=== PATIENT | male | born 1930 | race Caucasian/White ===

== ENCOUNTER 2020-05-14 19:53 | Inpatient (IN) | payer OTHER ==
[~2020-05-14] VITALS: Ht 177.8 cm; Wt 90.3 kg
--- NOTE | ~2020-05-14 | CON ---
[address] [address] CONSULTATION Name: PRASHANTH BAZAN Room: [address] ADM IN M.R.#: [id number] Admission: 05/14/20 Attend Phys: Janna Bagley Discharge: Date of : [birth year] Report #: [id number] THIS REPORT FOR: //name// cc: SOTERO Escobedo No family physician/PCP [facility] - No family physician/PCP ~ THIS REPORT FOR: //name// CC: [facility] physician/PCP Dawson Sotelo DICTATED BY: Dione Linder [facility] DATE OF SERVICE: 05/16/2020 PRIMARY CARE PHYSICIAN: Unknown who his primary care physician is except someone is at [facility]. Please note at the time of this dictation, the patient was seen and physically examined by myself. REASON FOR CONSULTATION: Cholelithiasis. HISTORY OF PRESENT ILLNESS: This is an 89-year-old male who presented to the Emergency Room when his family found him on the floor and he was complaining of some chest pain. He was also complaining of being short of breath. He denied any nausea or vomiting or fever and chills at that time. It was noted Cardiology was seen and was noted that he had an MD and is placed on heparin at this time. He does have a history of a CVA in the past as well. In talking with the daughter at the bedside because the patient was incoherent and sleeping at this time, states that he has been complaining off and on with eating some right upper quadrant pain, but it has not been consistent. She is unclear if he has ever had any upper or lower scopes done before and again the patient is unable to give me a history at this time. ALLERGIES: No known drug allergies. MEDICATIONS FROM HOME: Clonazepam, mirtazapine, Protonix, metformin, Plavix, Norvasc, Lipitor, and Levemir. PAST MEDICAL HISTORY: Diabetes, hypertension, prostate cancer, and right knee arthroscopic surgery. PAST SURGICAL HISTORY: Appendectomy. FAMILY HISTORY: [place] [address] CONSULTATION Name: ALEJANDRINAPRASHANTH Room: [address] IN .R.#: [id number] Admission: 05/14/20 Attend Phys: Janna Bagley Discharge: Date of : [birth year] Report #: [id number] SOCIAL HISTORY: Denies any alcohol, tobacco or illegal drug use. The patient lives alone in his home, uses a walker. His daughter lives next door to him and checks on him on a regular basis. REVIEW OF SYSTEMS: The 12-point review of systems is essentially negative except what is mentioned in the HPI. PHYSICAL EXAMINATION: VITAL SIGNS: Temperature 36.5, pulse 73, respirations 18, and blood pressure 126/96. HEART: Regular rate and rhythm. LUNGS: Diminished with a few little expiratory wheezes. ABDOMEN: Soft. Positive bowel sounds in all 4 quadrants with some right tenderness noted with grimacing on the patient's face during palpation. LABORATORY DATA: Hemoglobin 14.7, white count 10.9, and platelets 157. PTT is 85.1. GFR is only 24. Total bilirubin is 1.3, alkaline phosphatase 80, ALT 19, and AST is 43. CT of the abdomen and pelvis showed layering gallstones, otherwise negative. Ultrasound confirming with no other acute abnormality noted. IMPRESSION: 1. Elevated troponin. 2. Right upper quadrant pain. 3. Cholelithiasis. 4. Anticoagulant therapy, heparin, cerebrovascular accident. PLAN: 1. No intervention per GI at this time. LFTs normal. Consider surgical to remove the gallbladder once he is recovered from his myocardial infarction. 2. Low-fat, low-cholesterol diet. 3. Further recommendations to be made once Dr. Michaud sees the patient later today. Thank you for allowing us to participate in this patient's care. Please do not hesitate to call with any questions in regard to this consult. By: [id number] Michaud MD /renata
[~2020-05-14 19:53] MED LIST: LEVEMIR SUBQ; LEVEMIR100 UNIT/1 SUBQ; LIPITOR PO; METFORMIN HCL500 MG PO; NORVASC5 MG PO; PLAVIX 75 MG TA75 M1 PO
[2020-05-14 20:02] VITALS: BP 151/91
[2020-05-14] MEDS ORDERED: CLONAZEPAM 0.50.5 M1 PO (20:08)
[2020-05-14] MEDS ORDERED: MIRTAZAPINE15 M2 PO (20:08)
[2020-05-14] MEDS ORDERED: PROTONIX40 M2 PO (20:09)
[2020-05-14] MEDS ORDERED: MUPIROCIN22 GM (20:09)
[2020-05-14 20:23] LABS: HEMATOCRIT 47.9 % (42.0-52.0); HEMOGLOBIN 15.9 gm/dL (14.0-18.0); MCH 30.3 pg (26.0-34.0); MCHC 33.3 g/dL (28.0-37.0); MCV 91.1 fL (80.0-100.0); NUCLEATED RBCS 0 /100WBC; PLATELET COUNT* 194 thou/uL (150-400); RBC 5.26 mil/uL (4.50-6.00); RDW-CV 13.9 % (10.5-14.5); WBC 13.4 thou/uL (4.0-11.0)
[2020-05-14 20:36] LABS: CALCIUM 9.1 mg/dL (8.5-10.1); CREATININE 2.9 mg/dL (0.6-1.3); POTASSIUM 5.2 mmol/L (3.5-5.1)
[2020-05-14 20:44] LABS: ALBUMIN 3.2 g/dL (3.4-5.0); MAGNESIUM 2.1 mg/dL (1.8-2.4); TOTAL BILIRUBIN 0.9 mg/dL (<0.1-1.0); TOTAL PROTEIN 7.3 g/dL (6.4-8.2)
[2020-05-14 20:45] LABS: PROTIME 10.4 Seconds (9.20-11.50)
[2020-05-14 20:48] LABS: ABSOLUTE LYMPHOCYTES 0.4 thou/uL (0.8-5.3); ABSOLUTE MONOCYTES 0.9 thou/uL (0.0-1.2); ABSOLUTE NEUTROPHILS 12.1 thou/uL (1.6-8.1); PLATELET ESTIMATE ADEQUATE
[2020-05-15] VITALS (25 sets, daily range): BP systolic 99–165; BP diastolic 63–109
[2020-05-15 03:48] LABS: HEMATOCRIT 44.7 % (42.0-52.0); MCH 30.3 pg (26.0-34.0); MCHC 33.6 g/dL (28.0-37.0); MCV 90.3 fL (80.0-100.0); MPV 8.4 fl. (7.2-11.1); RBC 4.95 mil/uL (4.50-6.00); RDW-CV 13.6 % (10.5-14.5)
[2020-05-15 04:03] LABS: CALCIUM 8.5 mg/dL (8.5-10.1); CREATININE 2.6 mg/dL (0.6-1.3)
[2020-05-15 04:05] LABS: POTASSIUM 3.6 mmol/L (3.5-5.1)
[2020-05-15 04:07] LABS: ALBUMIN 2.9 g/dL (3.4-5.0); MAGNESIUM 2.1 mg/dL (1.8-2.4); TOTAL PROTEIN 6.8 g/dL (6.4-8.2)
--- NOTE | 2020-05-15 04:20 | NUR ---
ASSUMED CARE AT 0010H, ON RA AND TOLERATED. ORIENTED WITH CUNFUSSION AT TIMES. PT ALWAYS MOVING ON BED. ON INSULIN DRIP AND TITRATED. HEPARIN DRIP STARTED. ORIENT PT ALL THE TIME. KEPT SAFE. PT BECAME HYPOGLYCEMIC BEFORE 0300H AND UNRESPONSSIVE AND HR AT 174BPM, D%50 50ML GIVEN AND INSULIN DRIP STOP. LATEST BS 139. PT AWAKE, THRASHING ON BED, PRN PAIN MEDS GIVEN. PT WITH CONFUSSION AND STILL MOVING AND TRYING REMOVE PB CUFF. CONTINUE MONITORING AND TOWARD GOALS.
--- NOTE | 2020-05-15 05:10 | NUR ---
PT KEEPS ON TELLING THAT IS HIS TIME TO GO. PAST AWAY LAST MONTH ACCORDING TO HIM.
--- NOTE | 2020-05-15 10:27 | EKG ---
[place] [address] ELECTROCARDIOGRAM REPORT Name: MILTON BAZANARD Room: [address] ADM IN M.R.#: [id number] Admission: 05/14/20 Attend Phys: Dawson Sotelo Discharge: Date of : [birth year] Date of Service: 05/14/201958 Report #: [id number] THIS REPORT FOR: //name// 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 : 1930 Requested By: Dawson Sotelo Order Number: [id number] Kathy MD: Gagan Roberts Measurements Intervals [place] Rate: 116 P: 21 CO: 160 QRS: 113 QRSD: 88 T: -5 QT: 322 QTc: 448 Interpretive Statements Sinus tachycardia Borderline T abnormalities, inferior leads Baseline wander in lead(s) V5 No previous ECG available for comparison Electronically Signed On 05-15-2020 10:27:13 CDT by Gagan Roberts [email or web address] <ELECTRONICALLY SIGNED> By: Gagan Roberts MD, [facility] 05/15/20 1027 58 58 Gagan Roberts MD, [facility] /EPI
--- NOTE | 2020-05-15 10:29 | EKG ---
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 05/15/20 1029 Gagan Roberts MD, FAC /EPI
[2020-05-15 12:39] LABS: URINE BILIRUBIN NEGATIVE (Negative); URINE BLOOD TRACE (Negative); URINE CLARITY CLEAR; URINE COLOR YELLOW; URINE GLUCOSE-RANDOM 2+ (Negative); URINE KETONES 1+ (Negative); URINE LEUKOCYTES-REFLEX NEGATIVE (Negative); URINE NITRITE-REFLEX NEGATIVE (Negative); URINE PROTEIN 2+ (Negative); URINE SPECIFIC GRAVITY 1.025 (1.005-1.030); URINE UROBILINOGEN 0.2 E.U./dl (0.2-1.0)
[2020-05-15 12:46] LABS: BACTERIA-REFLEX 1-9 Few /HPF (None Seen); COARSE GRANULAR CASTS 0-3 Few /LPF (None Seen); CRYSTALS None Seen /LPF (None Seen); HYALINE CASTS 0-3 Few /LPF (None Seen); SQUAMOUS 0-3 Few /LPF (0-3); URINE RBC 0-2 Rare /HPF (0-2); URINE WBC-REFLEX 0-5 Rare /HPF (0-5)
[2020-05-15 13:07] LABS: CALCIUM 8.2 mg/dL (8.5-10.1); CREATININE 2.4 mg/dL (0.6-1.3); POTASSIUM 4.8 mmol/L (3.5-5.1)
--- NOTE | 2020-05-15 13:48 | 2DMMODE ---
[place] [address] 2 D/M-MODE ECHOCARDIOGRAM Name: PRASHANTH BAZAN Room: 003 ADM IN [place].#: [id number] Admission: 05/14/20 Attend Phys: Dawson Sotelo Discharge: Date of : [birth year] Date of Service: 05/15/20 1347 Report #: [id number] THIS REPORT FOR: cc: FAM - No family physician/PCP FAM - No family physician/PCP Gagan Roberts MD [facility] ~ APPROVED REPORT Study performed: 05/15/2020 09:35:50 EXAM: Comprehensive 2D, Doppler, and color-flow Echocardiogram Patient Location: In-Patient Room #: 003 Status: routine BSA: 2.08 HR: 96 bpm BP: 127/88 mmHg Rhythm: NSR Other Information Study Quality: Adequate Indications Abnormal ECG Sepsis Elevated Troponin 2D Dimensions IVSd: 11.32 (7-11mm) LVOT Diam: 19.80 (18-24mm) LVDd: 35.76 mm PWd: 10.92 (7-11mm) Ascending Ao: 37.70 (22-36mm) LVDs: 19.36 (25-40mm) Aortic Root: 38.33 mm Volumes Left Atrial Volume (Systole) LA ESV Index: 23.70 mL/m2 Aortic Valve AoV Peak Andrew.: 1.13 m/s AO Peak Gr.: 5.11 mmHg LVOT Max P.21 mmHg AO Mean Gr.: 3.19 mmHg LVOT Mean P.48 mmHg LVOT Max V: 1.14 m/s AO V2 VTI: 17.75 cm LVOT Mean V: 0.71 m/[place] [address] 2 D/M-MODE ECHOCARDIOGRAM Name: PRASHANTH BAZAN Room: [address] IN .R.#: [id number] Admission: 05/14/20 Attend Phys: Dawson Sotelo Discharge: Date of : [birth year] Date of Service: 05/15/20 1347 Report #: [id number] IDANIA (VTI): 3.55 cm2 LVOT V1 VTI: 20.48 cm Mitral Valve E/A Ratio: 0.58 MV Decel. Time: 239.18 ms MV E Max Andrew.: 0.71 m/s MV PHT: 69.36 ms MVA (PHT): 3.17 cm2 TDI E/Lateral E': 7.89 E/Medial E': 8.88 Medial E' Andrew.: 0.08 m/s Lateral E' Andrew.: 0.09 m/s Pulmonary Valve PV Peak Andrew.: 0.90 m/s PV Peak Gr.: 3.23 mmHg Left Ventricle The left ventricle is normal size. There is normal LV segmental wall motion. There is normal left ventricular wall thickness. Left ventricular systolic function is normal. The left ventricular ejection fraction is within the normal range. LVEF is 60-65%. Grade I - abnormal relaxation pattern. Right Ventricle The right ventricle is normal size. The right ventricular systolic function is normal. Atria The left atrium size is normal. The right atrium size is normal. Aortic Valve Mild aortic valve sclerosis. No aortic regurgitation is present. There is no aortic valvular stenosis. Mitral Valve There is mitral annular calcification. The mitral valve is normal in structure. There is no mitral valve regurgitation noted. No evidence of mitral valve stenosis. Tricuspid Valve The tricuspid valve is normal in structure. There is no tricuspid valve regurgitation noted[place] [address] 2 D/M-MODE ECHOCARDIOGRAM Name: PRASHANTH BAZAN Room: [address] IN [facility]#: [id number] Admission: 05/14/20 Attend Phys: Dawson Sotelo Discharge: Date of : [birth year] Date of Service: 05/15/20 1347 Report #: [id number] The pulmonary valve is normal in structure. There is no pulmonic valvular regurgitation. Great Vessels Aortic root is mildly dilated. IVC is normal in size and collapses >50% with inspiration. Pericardium There is no pericardial effusion. <Conclusion> LVEF is 60-65%. Mild aortic valve sclerosis. <ELECTRONICALLY SIGNED> By: Gagan Roberts MD, [facility] 05/15/20 1347 46 46 Gagan Roberts MD, [facility] /INF
--- NOTE | 2020-05-15 15:06 | NUR ---
ICU rounds: Alert to self only. Confused. Yelling out and "picking" at things. x1 month ago. Per nurse, Pt slid out of bed at home, found on the floor by family and was complaining of CP. Cardiology consulted. On hep gtt.
--- NOTE | 2020-05-15 16:49 | EKG ---
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: : 1930 Requested By: Jia Dutton Order Number: [id number] Reading MD: Gagan Roberts Measurements Intervals [place] Rate: 188 P: 0 MO: QRS: 112 QRSD: 87 T: -59 QT: 280 QTc: 496 Interpretive Statements Supraventricular tachycardia Probable RVH w/ secondary repol abnormality ST depression, probably rate related Compared to ECG 05/14/2020 23:18:37 ST (T wave) deviation now present Sinus tachycardia no longer present Electronically Signed On 05-15-2020 16:48:48 CDT by Gagan Roberts [email or web address] <ELECTRONICALLY SIGNED> By: Gagan Roberts MD, FAC 05/15/20 1648 151 1512 Gagan Roberts MD, FAC /EPI
--- NOTE | 2020-05-15 18:14 | NUR ---
PT WAS RESTLESS AND IMPULSIVE THROUGHOUT SHIFT-FINALLY RESTING THIS EVENING.PT STATED SEVERAL TIMES THAT HE WAS "READY TO GO AND BE WITH HIS "-PT ABOUT A MONTH AGO.PT HAD AN EPISODE OF SVT-CARDIOLOGY NOTIFIED WITH NEW ORDERS RECEIVED.CARDIZEM AND HEPARIN GTT INFUSING PER ORDERS.NEW IV INSERTED X2.PT DIET ADVANCED AND TOLERATED.ABDOMINAL/RENAL/LOWER EXTREMITY ULTRASOUND COMPLETED.ECHO COMPLETED.VQ SCAN COMPLETED.UA SENT.DAUGHTER LISSETTE VISITED AT BEDSIDE AND UPDATED ON CONDITION.FALL PRECAUTIONS IN PLACE.WILL COTNINUE TO MONITOR FOR DURATION OF SHIFT.
[2020-05-16] VITALS (23 sets, daily range): BP systolic 114–159; BP diastolic 60–99
[2020-05-16 02:11] LABS: HEMATOCRIT 43.9 % (42.0-52.0); HEMOGLOBIN 14.7 gm/dL (14.0-18.0); MCH 30.6 pg (26.0-34.0); MCHC 33.4 g/dL (28.0-37.0); MCV 91.5 fL (80.0-100.0); MPV 8.6 fl. (7.2-11.1); RBC 4.8 mil/uL (4.50-6.00); RDW-CV 13.8 % (10.5-14.5); WBC 10.9 thou/uL (4.0-11.0)
[2020-05-16 02:22] LABS: ALBUMIN 2.5 g/dL (3.4-5.0); CALCIUM 8.6 mg/dL (8.5-10.1); CREATININE 2.5 mg/dL (0.6-1.3); MAGNESIUM 2.2 mg/dL (1.8-2.4); POTASSIUM 4.1 mmol/L (3.5-5.1); TOTAL BILIRUBIN 1.3 mg/dL (<0.1-1.0); TOTAL PROTEIN 6.4 g/dL (6.4-8.2)
[2020-05-16 02:24] LABS: TROPONIN-I LEVEL 1.02 ng/mL (<0.06)
--- NOTE | 2020-05-16 04:19 | NUR ---
ASSUMED CARE AT 1910H, ON NC AT 2LPM AND TOLERATED. SEEN ON BED CONFUSED. ON HEPARIN INFUSION, TITRITED. ON CARDIZEM AT 5MG/HR, MAINTAINED. NO BRADYCARDIA AND HYPOTENSION NOTED. PT SOMETIMES RESTLESS. KEPT COMFORTABLE. CONTINUE MONITORING AND TOWARD GOALS.
--- NOTE | 2020-05-16 13:31 | NUR ---
ICU rounds: Tele status. Cxr today. Off hep and cardizem gtt. ST to eval today. CM spoke with son via phone. Pt resides at home alone, but his 3 children all live on the same land are involved in his POC. They have cameras in the home so they are able to keep watch over Pt. Pt has had 2 falls at home over the past few days. Children take Pt his meals and assist with IADLs, dtr sets up meds and assists with ADLs as needed. Pt's last August and son believes that Pt has "given up" on life. Pt's appetite has lessened and Pt opts not to be very active. Pt is current with [facility]. Hx of HH with [facility]. Hx of [facility]. Goal is for Pt to return home at dc with HH. PT/OT evals.
--- NOTE | 2020-05-16 14:25 | CON ---
[address] [address] CONSULTATION Name: PRASHANTH BAZAN Room: [address] ADM IN M.R.#: [id number] Admission: 05/14/20 Attend Phys: Janna Bagley Discharge: Date of : [birth year] Report #: [id number] THIS REPORT FOR: //name// cc: SOTERO Higgins family physician/PCP SOTERO - Gisela family physician/PCP ~ THIS REPORT FOR: //name// CC: SOTERO physician/PCP Dawson Sotelo DATE OF SERVICE: 05/15/2020 CARDIOLOGY CONSULTATION HISTORY OF PRESENT ILLNESS: The patient is an 89-year-old male who I was asked to see in the ICU today after he was noted to have an abnormal troponin. The history was obtained from some old records. 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 He was brought to the Emergency Room last night by one of his children. He was apparently found on the floor by family members. He complained of hurting all over. He did note some shortness of breath. He had fallen twice yesterday. He uses a walker. He complained of feeling weak. There has been no emesis or bleeding. PAST MEDICAL HISTORY: He has had a previous history of prostate cancer, knee arthroscopy, appendectomy, diabetes and hypertension. MEDICATIONS: Include clonazepam, Protonix, metformin, Plavix, amlodipine, atorvastatin, insulin. ALLERGIES: He has no known drug allergies. FAMILY HISTORY: Could not be obtained. SOCIAL HISTORY: He is . REVIEW OF SYSTEMS: The patient is confused at this time. PHYSICAL EXAMINATION: GENERAL: Revealed an elderly obese male, lying in bed. He appeared in no acute distress. VITAL SIGNS: He had a blood pressure of 110/70, pulse is 90, and he is afebrile. HEENT: He was anicteric. Conjunctivae are pink. Mucous membranes are moist. NECK: Veins do not appear distended. CHEST: Clear to auscultation. CARDIOVASCULAR: Regular [place] [address] CONSULTATION Name: PRASHANTH BAZAN Room: [address] IN .R.#: [id number] Admission: 05/14/20 Attend Phys: Janna Bagley Discharge: Date of : [birth year] Report #: [id number] ABDOMEN: Obese. EXTREMITIES: Had no edema. SKIN: Cool and dry. NEUROLOGIC: He is able to move all extremities. He was not oriented. He could not answer questions appropriately. DIAGNOSTIC DATA: His ECG shows a sinus rhythm, nonspecific T-wave changes. His workup in the Emergency Room last night, he had a CT scan of the head performed that showed cerebral atrophy, old lacunar infarction. His portable chest x-ray showed an infiltrate, mild cardiomegaly. CT scan of the chest was performed which showed cardiomegaly, coronary artery calcification. No pericardial effusion, some atelectasis. LABORATORY DATA: Sodium 146, creatinine 2.6, glucose 134. His troponin 2.15. White blood cell count 14.0, hemoglobin 15.0. IMPRESSION AND RECOMMENDATIONS: 1. Confusion. Suspect encephalopathy. 2. Elevated troponin. Recommend conservative approach. Possible type 2 myocardial infarction secondary to sepsis. 3. Hypertension. The patient is on a calcium saravanan. 4. Diabetes. 5. Hyperlipidemia. The patient is on a statin drug. 6. Previous stroke. The patient is on Plavix. 7. Chronic kidney disease. <ELECTRONICALLY SIGNED> By: Gagan Roberts MD, [facility] 05/16/20 1425 1139 [id number] Roberts MD, FACC /nt
--- NOTE | 2020-05-16 17:20 | NUR ---
PT IS A/OX4 BUT DROWSY AT TIMES.REMAINS ON 2L O2 NC.NEW CONSULT FOR NEPHROLOGY WITH DONIS PLACED PER NEPHRO REQUEST FOR CRITICAL I&O.PT WAS TOO DROWSY TO REALLY WORK WITH PHYSICAL THERAPY.WORKED WITH SPEECH THERAPY WITH RECOMMENDATIONS FOR SOFT DIET WITH HONEY THICK LIQUIDS UNTIL FURTHER EVALUATIONS.DAUGHTER LISSETTE WAS AT BEDSIDE THIS SHIFT AND WAS UPDATED ON PT CONDITION.WILL CONTINUE TO MONITOR FOR DURATION OF SHIFT.
[2020-05-17] VITALS (30 sets, daily range): BP systolic 95–151; BP diastolic 43–87
[2020-05-17 04:05] LABS: HEMATOCRIT 38.5 % (42.0-52.0); MCH 30.3 pg (26.0-34.0); MCV 91.9 fL (80.0-100.0); MPV 8.9 fl. (7.2-11.1); RBC 4.2 mil/uL (4.50-6.00); WBC 8.6 thou/uL (4.0-11.0)
[2020-05-17 04:10] LABS: HEMOGLOBIN 12.7 gm/dL (14.0-18.0)
[2020-05-17 04:20] LABS: ALBUMIN 2.1 g/dL (3.4-5.0); ALKALINE PHOSPHATASE 63 U/L (46-116); ANION GAP 7 mmol/L (7-16); BUN 26 mg/dL (7-18); CALCIUM 7.3 mg/dL (8.5-10.1); CHLORIDE 105 mmol/L (98-107); CHOLESTEROL 104 mg/dL (<200); CO2 26 mmol/L (21-32); CREATININE 2.4 mg/dL (0.6-1.3); GLUCOSE 124 mg/dL (70-99); HDL CHOLESTEROL 42 mg/dL (>40); LDL CHOLESTEROL 51 mg/dL (<100); POTASSIUM 3.7 mmol/L (3.5-5.1); SGOT 28 U/L (15-37); SGPT 16 U/L (30-65); SODIUM 138 mmol/L (136-145); TC:HDL 2.5 Ratio (Not establshd); TOTAL BILIRUBIN 0.6 mg/dL (<0.1-1.0); TOTAL PROTEIN 5.5 g/dL (6.4-8.2); TRIGLYCERIDE 59 mg/dL (<150); VLDL 12 mg/dL (<40)
[2020-05-17 04:23] LABS: SERUM ASSESSMENT Clear
--- NOTE | 2020-05-17 14:06 | NUR ---
ICU rounds: Tele status. Not very alert today, keeping eyes closed. No eating. PT to eval.
--- NOTE | 2020-05-17 14:40 | CON ---
[address] [address] CONSULTATION Name: PRASHANTH BAZAN Room: [address] ADM IN M.R.#: [id number] Admission: 05/14/20 Attend Phys: Janna Bagley Discharge: Date of : [birth year] Report #: [id number] THIS REPORT FOR: //name// cc: SOTERO Higgins family physician/PCP SOTERO - Gisela family physician/PCP ~ THIS REPORT FOR: //name// CC: [facility] physician/PCP Dawson Sotelo CONSULTING PHYSICIAN: Dr. Sotelo. REASON FOR CONSULTATION: Acute kidney injury. HISTORY OF PRESENT ILLNESS: An 89-year-old gentleman who was admitted after being found down on the floor at home. He had a significant hyperglycemia with blood sugar of over 500 and was thought to be hyperosmotic nonketotic hyperglycemia. He was started on IV fluids and also had PSVT, which was treated with a beta saravanan. Cardiology saw him. He is a very limited historian. In 2017, he had a creatinine of 1.4. On admission his creatinine was 2.9. He appears to be comfortable at present time and does not offer any complaints. REVIEW OF SYSTEMS: Constitutional, psych, heme, eyes, ENT, respiratory, cardiac, GI, , endocrine, all negative except as documented above. PAST MEDICAL HISTORY: Diabetes; hypertension; history of prostate cancer, history of stroke, history of knee arthroscopic surgery, appendectomy. SOCIAL HISTORY: No tobacco. FAMILY HISTORY: Not pertinent in this 89-year-old gentleman. CURRENT MEDICATIONS: Reviewed. PHYSICAL EXAMINATION: VITAL SIGNS: Blood pressure is 112/62, pulse 63, respirations 15, temperature 36.7. GENERAL: No acute distress. EYES: Open. EARS: Externally normal. NECK: Supple. CARDIOVASCULAR: Regular rate. LUNGS: Diminished breath sounds. ABDOMEN: Soft. MUSCULOSKELETAL: Nontender. PSYCHIATRIC: [place] [address] CONSULTATION Name: PRASHANTH BAZAN Room: [address] IN [facility]#: [id number] Admission: 05/14/20 Attend Phys: Janna Bagley Discharge: Date of : [birth year] Report #: [id number] LABORATORY DATA: White cell count 8.6, hemoglobin 12.7, platelets 132. Sodium 138, potassium 3.7, chloride 105, bicarbonate 27, BUN 26, creatinine 2.4, glucose 124, calcium 7.3, magnesium 2. ASSESSMENT: 1. Acute kidney injury with admission creatinine of 2.9. In 2017 creatinine was 1.4. Ultrasound did not reveal any hydronephrosis. CK was 571 in the setting of being found down. UA noted. 2. Hypoalbuminemia with an albumin of 2.1. 3. 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 4. Insulin-dependent diabetes with admission diagnosis of hyperosmotic nonketotic hyperglycemia. 5. Elevated CK of 571 in the setting of being found down and also on Lipitor. 6. Non-ST elevation myocardial infarction. 7. Hypertension. 8. History of cerebrovascular accident. 9. Paroxysmal supraventricular tachycardia. 10. History of prostate cancer. PLAN: 1. Creatinine is trending down. He is on half normal saline. He did initially have some mild hypernatremia, but is doing better now. 2. On antibiotics. 3. We will check CK in the morning. If CK is trending up, he will need statin discontinued, but it was only mildly elevated and thus okay to continue for now in the setting of non-ST elevation myocardial infarction. We will check labs again in the a.m. and follow along with you. Thank you for requesting my opinion in the care and management of this patient. <ELECTRONICALLY SIGNED> By: Caprice Steven MD 05/17/20 1440 1409 [id number] Steven MD /nt
--- NOTE | 2020-05-17 16:53 | NUR ---
ASSESSMENT CHARTED. VSS THROUGHOUT SHIFT. HR LOW MID 40'S EVERY ONCE IN AWHILE BUT NOT SUSTAINED. METOPROLOL ORDER CHANGED TO BID PER CARDIOLOGY. NOT TAKING MUCH PO. PATIENT NOTED TO COUGH WHILE FEEDING HIM HIS LUNCH. CONTACTED ST IN WHICH THEY RECOMMENDED DOWNGRADING HIM TO A PUREED DIET WITH HONEY THICK LIQUIDS STILL. THEY WILL RE-EVALUATE HIM TOMORROW. BLOOD GLUCOSE LEVELS WITHIN RANGE NOT REQUIRING SSI. PAIN IN LUQ RELIEVED WITH PRN PAIN MEDICATION. PATIENT WITH HIS EYES CLOSED MOST OF THE DAY. HE DOES FOLLOW SOME COMMANDS AND DOES ANSWER SOME SIMPLE QUESTIONS. OTHERWISE DISORIENTED. UP WITH PHYSICAL THERAPY TO THE BEDSIDE BUT OTHERWISE HAS NOT BEEN UP. DONIS ONLY DRAINED 250 MLS OF TYLER URINE. NO OTHER EVENTS DURING THIS SHIFT. PATIENT WILL BE TRANSFERING TO TELEMETRY MOMENTARILY.
--- NOTE | 2020-05-17 21:40 | NUR ---
pt transfered to telemetry unit at this time.
[2020-05-18] VITALS (7 sets, daily range): BP systolic 112–168; BP diastolic 59–96
--- NOTE | 2020-05-18 05:13 | NUR ---
RECEIVED PT FROM ICU AT APPROX 2150. PT IS LETHARGIC AND HARD TO AROUSE. BUT WAKES UP WITH VIGOROUS TACTILE STIMULI, PT IS ORIENTED TO SELF AND PLACE AND IS FORGETFUL. PT IS NOT IN RESPIRATORY DISTRESS, NO DESATURATIONS NOTED ON 2L OF O2/NC. POSITION CHANGES DONE. PT IS STILL OLIGURIC-SEE I AND O. PT IS TRACING SR/SB ON THE ORACLE APPLICATION ARCHITECT. NO ACUTE CHANGES THROUGHOUT THIS SHIFT. CALL LIGHT WITHIN REACH. HOURLY ROUNDING DONE FOR PT SAFETY.
[2020-05-18 05:57] LABS: HEMATOCRIT 41.9 % (42.0-52.0); MCH 30.4 pg (26.0-34.0); MCHC 33.4 g/dL (28.0-37.0); MPV 8.2 fl. (7.2-11.1); RBC 4.6 mil/uL (4.50-6.00); RDW-CV 13.6 % (10.5-14.5); WBC 7.7 thou/uL (4.0-11.0)
[2020-05-18 06:11] LABS: ALBUMIN 2.3 g/dL (3.4-5.0); CALCIUM 8.6 mg/dL (8.5-10.1); CREATININE 2.5 mg/dL (0.6-1.3); MAGNESIUM 2.3 mg/dL (1.8-2.4); POTASSIUM 4.1 mmol/L (3.5-5.1); TOTAL BILIRUBIN 0.6 mg/dL (<0.1-1.0); TOTAL PROTEIN 6.4 g/dL (6.4-8.2)
[2020-05-18 07:42] LABS: ALBUMIN 2.4 g/dL (3.4-5.0); CALCIUM 8.5 mg/dL (8.5-10.1); CREATININE 2.5 mg/dL (0.6-1.3); PHOSPHORUS* 4.2 mg/dL (2.5-4.9); POTASSIUM 4.1 mmol/L (3.5-5.1)
--- NOTE | 2020-05-18 15:58 | NUR ---
ASSUMED CARE OF PT AROUND 0730 THIS AM. REFER TO ASSESSMENT. PT MORE ALERT THIS AM AND ABLE TO ANSWER ORIENTATION QUESTIONS. NOTED THAT PT APPEARS SLEEPY/LETHARGIC THIS AFTERNOON. WILL CONSIDER HOLDING AM KLONIPIN IN AM TO ASSESS PT'S RESPONSE. PT'S DAUGHTER AT BEDSIDE THIS SHIFT. NO OTHER CONCERNS AT THIS TIME. CLWR. WCTM.
[2020-05-19] VITALS: BP 155/82
[2020-05-19 03:50] VITALS: BP 186/69
--- NOTE | 2020-05-19 04:40 | NUR ---
ASSUMED PT CARE AT APPROX 1930. PT IS MORE AWAKE AND ORIENTED, AND IS ABLE TO ANSWER ORIENTATION QUESTIONS, BUT THE NIGHT PROGRESSESS, PT IS MORE CONFUSED AND DISORIENTED AND TRIES TO CLIMB OUT OF BED COUPLE OF TIMES. PT IS NOT IN RESPIRATORY DISTRESS. CARDIAC MONIOTOR IS TRACING SR. PT C/O GENERALIZED BODY PAIN THAT IS PARTIALLY RELIEVED BY MEDS GIVEN PER DEC. CALL LIGHT WITHIN REACH. HOURLY ROUNDIG DONE FOR PT SAFETY.
[2020-05-19 05:58] LABS: CALCIUM 8.2 mg/dL (8.5-10.1); CREATININE 2.4 mg/dL (0.6-1.3); POTASSIUM 4.5 mmol/L (3.5-5.1)
[2020-05-19 13:47] VITALS: BP 161/95
[2020-05-19 17:55] VITALS: BP 163/80
[2020-05-19 20:00] VITALS: BP 157/89
[2020-05-20] VITALS: BP 176/91
[2020-05-20 04:00] VITALS: BP 111/66
--- NOTE | 2020-05-20 06:14 | NUR ---
NO ACUTE CHANGES THROUGHOUT SHIFT. VSS. CLONAZEPAM HELD THIS AM DUE TO LETHARGIC STATE THROUGHOUT DAY. PT WASN'T ABLE TO TAKE AM PILLS (PANTOPRAZOLE AND METOPROLOL) DUE TO LETHARGIC STATE. ALL ROUNDINGS COMPLETED, ALL NEEDS MET, FULL ASSESSMENT COMPLETED CHARTED.
[2020-05-20 08:00] VITALS: BP 172/98
[2020-05-20 12:00] VITALS: BP 187/97
[2020-05-20 16:00] VITALS: BP 144/83
--- NOTE | 2020-05-20 16:37 | NUR ---
ASSUMED PT CARE REPORT RECEIVED FROM NURSE. PT IS AOX4 FORGETFUL. ON 2 L NC. TRACING SR ON ROAD ADVISOR. UP WITH MAXIMUM ASSIST. BRUISING IN BILATERAL UPPER EXTREMITIES. DONIS CATHETER IN PLACE. RIGHT HAND AND LEFT FOREARM IV ARE PATENT. ACCUCHECK AC/HS. REHAB CONSULTED FOR DEBILITY. PT ASSISTED OUT OF BED TO THE BEDSIDE COMMODE WITH ASSIST X2. PT HAD A SMALL BOWEL MOVEMENT THIS SHIFT.PT IS MADE MEDSURG STATUS LATER DURING THE SHIFT. PT IS TO TRANSFER TO [facility]. REPORT GIVEN TO [facility] RN. FALL PRECAUTION IN PLACE
--- NOTE | 2020-05-20 17:08 | NUR ---
PT LEFT UNIT AT 1700 ACCOMPANIED BY NURSING STAFF ON BED WITH OXYGEN
--- NOTE | 2020-05-20 18:27 | NUR ---
Pt AOx2, drowsy on arrival to unit. Report receivied from nurs on 2W. Pt was aroused with sternal rub and stated "stop doing that" when asked to respond. Pt is pureed diet, and thickened liquids, feeds self. No apparent pain. Up with max assist. Will continue to monitor
[2020-05-20 20:00] VITALS: BP 168/86
[2020-05-21 04:29] LABS: ALBUMIN 2.3 g/dL (3.4-5.0); CALCIUM 8.8 mg/dL (8.5-10.1); CREATININE 1.7 mg/dL (0.6-1.3); POTASSIUM 3.9 mmol/L (3.5-5.1)
--- NOTE | 2020-05-21 04:51 | NUR ---
PT CONFUSED AT TIMES. ON 2L BY NC. MEDS CRUSHED AND GIVEN WITH APPLE SAUCE. DENIED PAIN. PT SLEEPING THROUGH THE NIGHT ON HOURLY ROUNDINGS. DONIS IN PLACE. BED ALARMS ON FOR SAFETY. WILL CONTINUE TO MONITOR.
[2020-05-21 06:29] VITALS: BP 175/90
--- NOTE | 2020-05-21 07:39 | NUR ---
CM INFORMED BY PHYSICIAN OF THE NEED TO SPEAK TO PT'S FAMILY TO DISCUSS SNF. PT'S DTR IN THE ROOM AND EXPRESS DISINTEREST IN SNF AND QUESTIONS THE REASON THAT THE PT REQUIRES SNF. PT'S DTR ALSO INFORMS THAT HER BROTHER (PT'S SON) IS THE ACTUAL DECISION MAKER, AND CM SHOULD REACH OUT TO HIM. CM ATTEMPTED TO CONTACT THE PT'S SON TO DISCUSS THIS. NO ANSWER. CM TO F/U WITH SON T0 DISCUSS SNF AT D/C. CM WILL REMAIN AVAILABLE TO ASSIST AND FOLLOW NEEDED.
[2020-05-21 08:30] VITALS: BP 178/103
--- NOTE | 2020-05-21 13:53 | NUR ---
SANDEEP/[facility] CALLED TO SAY SHE WILL NOT HAVE ANY SNF BEDS UNTIL THE END OF THE WEEK. CM TO CALL SON,FOZIA, TO DISCUSS OTHER SNF HE WOULD LIKE DAD TO GO TO.
--- NOTE | 2020-05-21 14:13 | NUR ---
Spoke to son Jin-notified [facility] has not beds at this time. He asked for other facilities in the area-gave him [facility] [place], [facility] and [facility]. He and his brother are going to check these out and call back later today.
--- NOTE | 2020-05-21 14:42 | NUR ---
Nutrition: Pt admitted with elevated troponin. Seen for LOS. Per RN, pt is eating well, good appetite. Wt is at usual 199#. Pureed diet is ordered. Meds: insulin, metformin. H/o CKD III, HTN. TISHA - resolving. Alb 2.3, prealb 10.2. No oral supplements at thi stime d/t good po intake. Encourage good HBV protein at meals. Awaiting facility placement. Consider mild risk.
[2020-05-21 16:00] VITALS: BP 160/88
--- NOTE | 2020-05-21 18:04 | NUR ---
Pt AOx2-3, pt forgetful and very drowsy at times. Pt is up with max assist. Pt had BM today after Miralax and enema. Reported pt increased drowsiness to MD and orders received. Pt started on IV fluids and tolerating well. Pt feeds self puree foods with tray setup. No other concerns will continue to monitor
[2020-05-21 20:03] VITALS: BP 190/94
[2020-05-22 04:25] LABS: HEMATOCRIT 40.6 % (42.0-52.0); HEMOGLOBIN 13.5 gm/dL (14.0-18.0); MCH 30.3 pg (26.0-34.0); MCHC 33.4 g/dL (28.0-37.0); MCV 90.7 fL (80.0-100.0); MPV 7.7 fl. (7.2-11.1); RBC 4.48 mil/uL (4.50-6.00); RDW-CV 13.6 % (10.5-14.5); WBC 9.3 thou/uL (4.0-11.0)
[2020-05-22 04:56] LABS: ALBUMIN 2.2 g/dL (3.4-5.0); CALCIUM 8.6 mg/dL (8.5-10.1); CREATININE 1.7 mg/dL (0.6-1.3); MAGNESIUM 1.9 mg/dL (1.8-2.4); POTASSIUM 3.8 mmol/L (3.5-5.1); TOTAL BILIRUBIN 0.4 mg/dL (<0.1-1.0)
--- NOTE | 2020-05-22 06:06 | NUR ---
PT ALERT TO SELF, DOES NOT SPEAK CLEARLY OR ANSWER QUESTIONS. HE IS HARD TO AROUSE. DID NOT APPEAR TO BE IN ANY PAIN OR DISCOMFORT. SKIN IS GOOD NO ISSUES. DONIS GOOD CLEAR YELLOW OUTPUT. HONEY THICKENED FLUIDS AND PUREE FOODS. SLURRED SPEECH. WEAKNESS, BEDREST. Q2 TURN. RECEIVED ALL MEDS AND FLUIDS. MEDS CRUSHED IN APPLESAUCE. WILL CONTINUE TO MONITOR.
[2020-05-22 07:40] VITALS: BP 138/68
--- NOTE | 2020-05-22 15:00 | NUR ---
SPOKE WITH SON,FOZIA. HE SAID HE AND BROTHERS 2ND CHOICE WOULD BE [facility] AND 3RD WOULD BE [facility]. EXPLAINED TO HIM THAT [facility] DOES NOT CONTRACT WITH HIS DAD'S INSURANCE. HE WAS AGREEABLE TO FAXING REFERRAL TO [facility]. LEFT MESSAGE FOR [facility] AT [phone] AND FAXED SNF REFERRAL TO HER AT [phone]. TOLD HER HE IS READY FOR DISCHARGE ANYTIME. WILL NEED TO BE ACCEPTED MEDICALLY TO [facility] AND PENDING INS.AUTHORIZATION.
[2020-05-22 15:43] VITALS: BP 129/63
--- NOTE | 2020-05-22 18:28 | NUR ---
PATIENT RESTING IN BED. PATIENT REPOSTIONED WHILE IN BED. PATIENT IS ALERT AND ORIENTED TO SELF. PATIENT DENIES ANY PAIN. PATIENT DOES NOT LIKE PUREED DIET AND THICKENED LIQUIDS, BUT DID EAT ABOUT 50% OF MEALS. PATIENT HAD INCONTINENT BOWEL MOVEMENT THIS EVENING. DONIS CATHETER DC'D ORDERED, POOR URINE OUTPUT OF 250ML. DR MCKEON NOTIFIED AND 500ML BOLUS ORDERED. PATIENT HAS GENERALIZED EDEMA. PATIENT DENIES ANY NEEDS AT THIS TIME. CALL LIGHT WITHIN REACH. BED ALARM ON.
[2020-05-22 21:30] VITALS: BP 155/89
[2020-05-23 04:29] LABS: HEMATOCRIT 39.4 % (42.0-52.0); MCH 30.2 pg (26.0-34.0); MCV 91.4 fL (80.0-100.0); MPV 7.8 fl. (7.2-11.1); RBC 4.32 mil/uL (4.50-6.00); RDW-CV 13.6 % (10.5-14.5); WBC 11.8 thou/uL (4.0-11.0)
[2020-05-23 04:59] LABS: CALCIUM 8.2 mg/dL (8.5-10.1); CREATININE 1.8 mg/dL (0.6-1.3); POTASSIUM 3.7 mmol/L (3.5-5.1)
--- NOTE | 2020-05-23 07:34 | NUR ---
PATIENT HAS SLEPT WELL THROUGHOUT THE NIGHT. VSS ON 2L 02 VIA NASAL CANNULA. MEDICATIONS GIVEN CRUSHED WITH PUDDING AND PATIENT WAS SAT UP 90 DEGREES IN BED AND PATIENT WAS HAVING TROUBLE SWALLOWING PUDDING. PATIENT WAS COUGHING AND HAVING A VERY DIFFICULT TIME GETTING PUDDING TO GO DOWN. PATIENT WAS FINALLY ABLE TO CLEAR THROAT AFTER A FEW MINUTES. PATIENT IS VERY CONFUSED. PATIENT REMAINED ON BEDREST AND WAS REPOSITIONED EVERY 2HRS. PATIENT INCONTINENT OF BOWEL AND BLADDER DURING THE NIGHT. BOWEL MOVEMENT X 2. VEE CARE PERFORMED. IV IN LEFT FOREARM-SL. FALL PRECAUTIONS IN PLACE AND HOURLY ROUNDS MADE. WILL CONTINUE WITH PLAN OF CARE AND NURSING TO MONITOR.
[2020-05-23 08:00] VITALS: BP 159/91
[2020-05-23] MEDS ORDERED: MIRALAX119 GM PO (09:28)
[2020-05-23] MEDS ORDERED: CELEXA 10 MG TA10 M1 PO (09:28)
[2020-05-23] MEDS ORDERED: DULCOLAX STOOL100 M1 PO (09:28)
[2020-05-23] MEDS ORDERED: NORVASC 2.5 MG2.5 M1 PO (09:28)
[2020-05-23] MEDS ORDERED: LOPRESSOR50 MG PO (09:28)
--- NOTE | 2020-05-23 12:13 | NUR ---
DAYDAY CALLED CM [facility] AND SAID THEY CAN ACCEPT PT.[facility]. SHE WILL SUBMIT FOR INSURANCE AUTHORIZATION. WILL NEED UPDATED PT/OT NOTES. NOTIFIED THERAPY TO SEE PT.JESUS THIS AM AND PUT NOTES IN. FAXED PT/OT NOTES FROM TODAY AND YESTERDAYS PROGRESS NOTE TO DAYDAY AT THIS TIME.
[2020-05-23 15:51] VITALS: BP 155/83
--- NOTE | 2020-05-23 18:17 | NUR ---
PATIENT ALERT TO SELF, CONFUSED AT TIMES. VSS ON ROOM AIR. NO COMPLAINTS VOICED THIS SHIFT. MEDICATIONS CRUSHED AND ADMINISTERED WITH APPLESAUCE, NO ISSES SWALLOWING DURING FACILITIES DIRECTOR. PATIENT SET UP AND FED AT MEAL TIMES. TOLERATING PUREED DIET WITH THICKENED LIQUIDS. FALL PRECAUTIONS IN PLACE. CALL LIGTH WITHIN REACH. HOURLY ROUNDS COMPLETED. WILL CONTINUE WITH PLAN OF CARE.
[2020-05-23 20:16] VITALS: BP 153/88
--- NOTE | 2020-05-24 04:52 | NUR ---
PATIENT HAD A DRY COUGH THROUGH THE NIGHT. I KEPT HIS HOB ELEVATED AND REQUESTED PRN BREATHING TREATMENT/ALBUTEROL FROM RT. HE IS A Q2 TURN AND INCONTINENT OF URINE. NO BM THIS SHIFT. HE IS ABLE TO COMMUNICATE YES/NO AT TIMES WHEN ASKED DIRECT QUESTIONS. I ENCOURAGED HYDRATION SEVERAL TIMES HE WAS ABLE TO HAVE DRINKS. DID NOT APPEAR TO BE IN ANY PAIN. HE DID REPORT HE WAS HAVING A HARD TIME BREATHING WHICH PROMPTED THE BREATHING TREATMENT AND READJUSTED HIM IN BED. HE DID NOT REPORT ANY DISCOMFORT AFTER THAT. HE HAS BEEN ON 2L - NC ALL SHIFT. STAT COVID TEST DONE AND IS NEGATIVE. WILL CONTINUE TO MONITOR.
[2020-05-24 07:56] VITALS: BP 148/86
--- NOTE | 2020-05-24 15:00 | NUR ---
[facility] CALLED CM AND SAID SHE HAD AUTHORIZATION FROM INS. FOR HIM TO COME TO SKILLED BED AT [facility]. FAXED DISCHARGE ORDERS TO HER. CHART COPIED BY [employer] TO CALL REPORT TO [phone], ATTEMPTED TO INFORM PT. HE WAS VERY SLEEPY. CONTACTED SON,PRASHANTH. HE WAS UPSET THAT HE WAS NOT ABLE TO VISIT AT SNF. EXPLAINED IT IS THAT WAY AT ALL SNFS IN AREA. HE CAME TO VISIT PT.PRIOR TO VAN COMING AT 1630. [employer]LE[employer] CLERK WAS ABLE TO GET PT MORE AWAKE AND FED HIM SOME PUDDING.
[2020-05-24 17:03] VITALS: BP 148/86
--- NOTE | 2020-05-24 17:36 | NUR ---
PATIENT ALERT TO SELF, FORGETFUL BUT VERY PLEASANT. VSS ON 2 LITERS 02. NO COMPLAINTS OF PAIN THIS SHIFT. PATIENT UP TO BEDSIDE WITH MAX ASSIST DURING THERAPIES. TRANSFERRED TO WHEELCHAIR WITH LIFT. PATIENT DISCHARGED AT 1735 WITH PERSONAL BELONGINGS GICEN TO FAMILY. TRANSPORTETED TO [facility] VIA WHEELCHAIR VAN.
== END 2020-05-24 17:35 | DRG 871 ==
LOC: M.ERS 19:53 → M.ORTHSURG 22:21 → M.TBA-ER 22:21 → M.ICU 22:21 → M.2W 05-17 21:50 → M.ORTHSURG 05-20 17:14
PROVIDERS: Emergency Medicine; Internal Medicine; Internal Medicine Nephrology; ADMIT Internal Medicine; ATTEND Internal Medicine
DX: A41.9 Sepsis, unspecified organism (principal); G93.41 Metabolic encephalopathy; E11.00 Type 2 diabetes mellitus with hyperosmolarity without nonketotic hyperglycemic-hyperosmolar coma (NKHHC); I21.A1 Myocardial infarction type 2; E43 Unspecified severe protein-calorie malnutrition; N17.9 Acute kidney failure, unspecified; I47.1 Supraventricular tachycardia; K80.10 Calculus of gallbladder with chronic cholecystitis without obstruction; E11.65 Type 2 diabetes mellitus with hyperglycemia; N18.9 Chronic kidney disease, unspecified; E78.5 Hyperlipidemia, unspecified; K80.20 Calculus of gallbladder without cholecystitis without obstruction; N28.1 Cyst of kidney, acquired; N18.3 Chronic kidney disease, stage 3 (moderate); E11.22 Type 2 diabetes mellitus with diabetic chronic kidney disease; G47.33 Obstructive sleep apnea (adult) (pediatric); Z20.828 Contact with and (suspected) exposure to other viral communicable diseases; I12.9 Hypertensive chronic kidney disease with stage 1 through stage 4 chronic kidney disease, or unspecified chronic kidney disease; Z85.46 Personal history of malignant neoplasm of prostate; Z90.49 Acquired absence of other specified parts of digestive tract; Z79.01 Long term (current) use of anticoagulants; Z79.899 Other long term (current) drug therapy; Z86.73 Personal history of transient ischemic attack (TIA), and cerebral infarction without residual deficits

== ENCOUNTER 2020-05-30 08:45 | Inpatient (IN) | payer OTHER ==
[~2020-05-30] VITALS: Ht 177.8 cm; Wt 92.1 kg
[~2020-05-30 08:45] MED LIST changes: +CELEXA 10 MG TA10 M1 PO; +CLONAZEPAM 0.50.5 M1 PO; +DULCOLAX STOOL100 M1 PO; +LOPRESSOR50 MG PO; +MIRALAX119 GM PO; +MIRTAZAPINE15 M2 PO; +MUPIROCIN22 GM; +NORVASC 2.5 MG2.5 M1 PO; +PROTONIX40 M2 PO
[2020-05-30 08:47] VITALS: BP 166/92
[2020-05-30] MEDS ORDERED: CELEXA 10 MG TA10 M1 PO (08:49)
[2020-05-30] MEDS ORDERED: LIPITOR40 MG PO (08:49)
[2020-05-30] MEDS ORDERED: NORVASC10 MG PO (08:50)
[2020-05-30 09:19] LABS: ABSOLUTE BASOPHILS 0.1 thou/uL (0.0-0.2); ABSOLUTE EOSINOPHILS 0.3 thou/uL (0.0-0.7); ABSOLUTE LYMPHOCYTES 1.2 thou/uL (0.8-5.3); ABSOLUTE MONOCYTES 0.8 thou/uL (0.0-1.2); ABSOLUTE NEUTROPHILS 10.1 thou/uL (1.6-8.1); BASOPHILS 1.2 %; EOSINOPHILS 2.3 %; HEMATOCRIT 43.8 % (42.0-52.0); HEMOGLOBIN 14.2 gm/dL (14.0-18.0); LYMPHOCYTES 9.4 %; MCH 29.6 pg (26.0-34.0); MCHC 32.4 g/dL (28.0-37.0); MCV 91.4 fL (80.0-100.0); MONOCYTES 6.4 %; MPV 7.5 fl. (7.2-11.1); NUCLEATED RBCS 0 /100WBC; PLATELET COUNT* 383 thou/uL (150-400); POLYS 80.7 %; RBC 4.79 mil/uL (4.50-6.00); RDW-CV 13.6 % (10.5-14.5); WBC 12.5 thou/uL (4.0-11.0)
[2020-05-30 09:25] LABS: CALCIUM 8.7 mg/dL (8.5-10.1); CREATININE 2.2 mg/dL (0.6-1.3)
[2020-05-30 09:27] LABS: APTT 28.8 Seconds (25.0-31.3); INR 1.1
[2020-05-30 09:40] LABS: ALBUMIN 2.3 g/dL (3.4-5.0); CK-MB MASS 1.6 ng/mL (<0.5-3.6); TOTAL BILIRUBIN 0.6 mg/dL (<0.1-1.0)
[2020-05-30 10:04] LABS: URINE BILIRUBIN NEGATIVE (Negative); URINE BLOOD NEGATIVE (Negative); URINE CLARITY CLEAR; URINE COLOR YELLOW; URINE GLUCOSE-RANDOM TRACE (Negative); URINE KETONES NEGATIVE (Negative); URINE LEUKOCYTES-REFLEX NEGATIVE (Negative); URINE NITRITE-REFLEX NEGATIVE (Negative); URINE PROTEIN 2+ (Negative); URINE SPECIFIC GRAVITY 1.025 (1.005-1.030)
[2020-05-30 10:09] LABS: AMORPHOUS URATES Few /LPF (None Seen); BACTERIA-REFLEX 1-9 Few /HPF (None Seen); CASTS None Seen /LPF (None Seen); MUCUS 0-3 Light strn/LPF (None Seen); SQUAMOUS 0-3 Few /LPF (0-3); URINE RBC 0-2 Rare /HPF (0-2); URINE WBC-REFLEX 6-15 Few /HPF (0-5)
[2020-05-30 14:57] VITALS: BP 146/77
[2020-05-30 17:13] VITALS: BP 146/77
[2020-05-30 17:25] VITALS: BP 157/83
[2020-05-30 21:00] VITALS: BP 131/64
[2020-05-31] VITALS: BP 144/68
[2020-05-31 04:00] VITALS: BP 112/67
[2020-05-31 04:06] LABS: GLYCOHEMOGLOBIN (HGB A1C) 11.9 % (4.8-5.6)
[2020-05-31 05:23] LABS: ABSOLUTE BASOPHILS 0.1 thou/uL (0.0-0.2); ABSOLUTE EOSINOPHILS 0.4 thou/uL (0.0-0.7); ABSOLUTE LYMPHOCYTES 1.5 thou/uL (0.8-5.3); ABSOLUTE MONOCYTES 0.8 thou/uL (0.0-1.2); ABSOLUTE NEUTROPHILS 8.6 thou/uL (1.6-8.1); BASOPHILS 1.1 %; EOSINOPHILS 3.5 %; HEMATOCRIT 38.9 % (42.0-52.0); HEMOGLOBIN 12.7 gm/dL (14.0-18.0); LYMPHOCYTES 13.1 %; MCHC 32.5 g/dL (28.0-37.0); MCV 92.3 fL (80.0-100.0); MONOCYTES 7.3 %; MPV 8.1 fl. (7.2-11.1); NUCLEATED RBCS 0 /100WBC; PLATELET COUNT* 333 thou/uL (150-400); RBC 4.22 mil/uL (4.50-6.00); WBC 11.4 thou/uL (4.0-11.0)
[2020-05-31 05:35] LABS: CALCIUM 7.9 mg/dL (8.5-10.1); POTASSIUM 3.7 mmol/L (3.5-5.1)
[2020-05-31 06:16] LABS: CHOLESTEROL 95 mg/dL (<200); HDL CHOLESTEROL 26 mg/dL (>40); LDL CHOLESTEROL 49 mg/dL (<100); TC:HDL 3.7 Ratio (Not establshd); TRIGLYCERIDE 104 mg/dL (<150); VLDL 21 mg/dL (<40)
[2020-05-31 06:17] LABS: SERUM ASSESSMENT Clear
[2020-05-31 08:00] VITALS: BP 133/74
--- NOTE | 2020-05-31 10:25 | EKG ---
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[facility] [place] 1930 Requested By: Alex Cortez Order Number: [id number] MD: Héctor Christensen Measurements Intervals [place] Rate: 72 P: 88 OR: 171 QRS: 74 QRSD: 90 T: 70 QT: 439 QTc: 481 Interpretive Statements Sinus rhythm Nonspecific T abnormalities, lateral leads Borderline prolonged QT interval Baseline wander in lead(s) I,II,aVR,aVL Compared to ECG 05/15/2020 15:12:39 T-wave abnormality now present Supraventricular tachycardia no longer present ST (T wave) deviation no longer present Electronically Signed On 05-31-2020 10:25:44 CDT by Héctor Christensen [email or web address] <ELECTRONICALLY SIGNED> By: Héctor Christensen MD, [facility] 05/31/20 1025 0852 Héctor Christensen MD, [facility] /EPI
[2020-05-31 11:43] VITALS: BP 133/71
[2020-05-31 18:13] VITALS: BP 135/60
[2020-05-31 20:20] VITALS: BP 137/60
[2020-06-01 00:24] VITALS: BP 143/67
[2020-06-01 04:26] VITALS: BP 116/54
[2020-06-01 08:00] VITALS: BP 152/74
[2020-06-01 12:11] VITALS: BP 154/76
[2020-06-01 13:56] LABS: CALCIUM 8.1 mg/dL (8.5-10.1); CREATININE 1.9 mg/dL (0.6-1.3); POTASSIUM 3.9 mmol/L (3.5-5.1)
[2020-06-01 17:29] VITALS: BP 138/60
[2020-06-01 20:20] VITALS: BP 125/64
[2020-06-02 00:28] VITALS: BP 148/66
[2020-06-02 04:30] LABS: ABSOLUTE BASOPHILS 0.1 thou/uL (0.0-0.2); ABSOLUTE EOSINOPHILS 0.3 thou/uL (0.0-0.7); ABSOLUTE LYMPHOCYTES 1.3 thou/uL (0.8-5.3); ABSOLUTE MONOCYTES 0.7 thou/uL (0.0-1.2); BASOPHILS 0.8 %; EOSINOPHILS 2.3 %; HEMATOCRIT 37.6 % (42.0-52.0); HEMOGLOBIN 12.4 gm/dL (14.0-18.0); LYMPHOCYTES 9.7 %; MCH 30.1 pg (26.0-34.0); MONOCYTES 5.4 %; MPV 7.2 fl. (7.2-11.1); NUCLEATED RBCS 0 /100WBC; PLATELET COUNT* 336 thou/uL (150-400); POLYS 81.8 %; RBC 4.13 mil/uL (4.50-6.00); RDW-CV 13.3 % (10.5-14.5); WBC 13.4 thou/uL (4.0-11.0)
[2020-06-02 04:32] VITALS: BP 150/60
[2020-06-02 04:40] LABS: CALCIUM 7.7 mg/dL (8.5-10.1); POTASSIUM 3.9 mmol/L (3.5-5.1)
[2020-06-02 08:21] VITALS: BP 146/76
[2020-06-02 12:00] VITALS: BP 143/71
[2020-06-02 16:00] VITALS: BP 135/61
[2020-06-02 20:00] VITALS: BP 126/58
[2020-06-03] VITALS: BP 127/56
[2020-06-03 04:02] VITALS: BP 134/64
[2020-06-03 10:05] LABS: ABSOLUTE BASOPHILS 0.1 thou/uL (0.0-0.2); ABSOLUTE EOSINOPHILS 0.3 thou/uL (0.0-0.7); ABSOLUTE MONOCYTES 0.6 thou/uL (0.0-1.2); ABSOLUTE NEUTROPHILS 8.9 thou/uL (1.6-8.1); BASOPHILS 1.2 %; EOSINOPHILS 2.9 %; HEMATOCRIT 41.8 % (42.0-52.0); HEMOGLOBIN 13.8 gm/dL (14.0-18.0); LYMPHOCYTES 9.4 %; MCHC 33.1 g/dL (28.0-37.0); MCV 90.7 fL (80.0-100.0); MONOCYTES 5.2 %; MPV 7.5 fl. (7.2-11.1); NUCLEATED RBCS 0 /100WBC; PLATELET COUNT* 352 thou/uL (150-400); POLYS 81.3 %; RBC 4.61 mil/uL (4.50-6.00)
[2020-06-03 10:33] LABS: ALBUMIN 2.1 g/dL (3.4-5.0); CALCIUM 8.1 mg/dL (8.5-10.1); CREATININE 1.9 mg/dL (0.6-1.3); POTASSIUM 3.8 mmol/L (3.5-5.1); TOTAL BILIRUBIN 0.7 mg/dL (<0.1-1.0); TOTAL PROTEIN 6.5 g/dL (6.4-8.2)
[2020-06-03 12:01] VITALS: BP 124/69
[2020-06-03 17:02] VITALS: BP 131/64
[2020-06-03 19:45] VITALS: BP 138/80
[2020-06-04] VITALS: BP 118/68; BP 135/68
[2020-06-04 04:00] VITALS: BP 129/64
[2020-06-04 05:39] LABS: ABSOLUTE BASOPHILS 0.1 thou/uL (0.0-0.2); ABSOLUTE EOSINOPHILS 0.4 thou/uL (0.0-0.7); ABSOLUTE LYMPHOCYTES 1.5 thou/uL (0.8-5.3); ABSOLUTE MONOCYTES 0.7 thou/uL (0.0-1.2); ABSOLUTE NEUTROPHILS 6.1 thou/uL (1.6-8.1); BASOPHILS 1.2 %; EOSINOPHILS 4.6 %; HEMATOCRIT 36.2 % (42.0-52.0); HEMOGLOBIN 12.1 gm/dL (14.0-18.0); MCH 30.3 pg (26.0-34.0); MCHC 33.5 g/dL (28.0-37.0); MCV 90.5 fL (80.0-100.0); MONOCYTES 7.8 %; MPV 7.7 fl. (7.2-11.1); NUCLEATED RBCS 0 /100WBC; PLATELET COUNT* 286 thou/uL (150-400); POLYS 69.4 %; RBC 3.99 mil/uL (4.50-6.00); RDW-CV 13.1 % (10.5-14.5); WBC 8.8 thou/uL (4.0-11.0)
[2020-06-04 05:54] LABS: ALBUMIN 1.8 g/dL (3.4-5.0); CALCIUM 7.5 mg/dL (8.5-10.1); CREATININE 1.7 mg/dL (0.6-1.3); POTASSIUM 3.6 mmol/L (3.5-5.1); TOTAL BILIRUBIN 0.4 mg/dL (<0.1-1.0); TOTAL PROTEIN 5.7 g/dL (6.4-8.2)
[2020-06-04 08:00] VITALS: BP 143/76
[2020-06-04] MEDS ORDERED: SINEMET 25-1001 EAC1 PO (10:41)
[2020-06-04 11:30] VITALS: BP 115/64
[2020-06-04 15:58] VITALS: BP 113/59
[2020-06-04 20:15] VITALS: BP 125/64
[2020-06-05 04:00] VITALS: BP 138/63
[2020-06-05 07:52] VITALS: BP 126/61
[2020-06-05 08:20] VITALS: BP 126/61
[2020-06-05] MEDS ORDERED: AUGMENTIN 875-1 EACH PO (11:08)
[2020-06-05 11:35] VITALS: BP 137/78
[2020-06-05 11:56] LABS: PCO2 49.9 mmHg (35.0-45.0); pH 7.382 (7.340-7.450)
[2020-06-05 12:02] LABS: PO2 51.8 mmHg (75.0-100.0)
[2020-06-05 15:14] VITALS: BP 137/78
[2020-06-05 15:16] VITALS: BP 126/61
== END 2020-06-05 17:22 | disposition home health service (06) | DRG 177 ==
LOC: M.ERS 08:45 → M.2W 10:38 → M.TBA-ER 10:38 → M.2W 17:15
PROVIDERS: Family Medicine; ADMIT Internal Medicine; ATTEND Internal Medicine
DX: J69.0 Pneumonitis due to inhalation of food and vomit (principal); G93.41 Metabolic encephalopathy; N17.9 Acute kidney failure, unspecified; N39.0 Urinary tract infection, site not specified; E87.0 Hyperosmolality and hypernatremia; N18.9 Chronic kidney disease, unspecified; E86.0 Dehydration; E11.22 Type 2 diabetes mellitus with diabetic chronic kidney disease; G20 Parkinson's disease; F02.80 Dementia in other diseases classified elsewhere, unspecified severity, without behavioral disturbance, psychotic disturbance, mood disturbance, and anxiety; I12.9 Hypertensive chronic kidney disease with stage 1 through stage 4 chronic kidney disease, or unspecified chronic kidney disease; Z20.828 Contact with and (suspected) exposure to other viral communicable diseases; Z85.46 Personal history of malignant neoplasm of prostate; Z86.73 Personal history of transient ischemic attack (TIA), and cerebral infarction without residual deficits; Z90.49 Acquired absence of other specified parts of digestive tract; Z79.01 Long term (current) use of anticoagulants; Z79.84 Long term (current) use of oral hypoglycemic drugs; Z79.4 Long term (current) use of insulin; Z79.899 Other long term (current) drug therapy